=== PATIENT | female | born 1950 | race Caucasian/White ===

== ENCOUNTER 2017-03-17 05:56 | Day surgery (SDC) | payer MEDICARE, OTHER ==
[2017-03-17] MEDS ORDERED: DIPRIVAN 200 MG/20 ML IV ONE (05:57)
[2017-03-17] MEDS ORDERED: Zofran 4 MG/2 ML VIAL IV ONE (05:57)
[2017-03-17] MEDS ORDERED: Lactated Ringers 1,000 ML IV SCH (06:30)
[2017-03-17 08:44] VITALS: BP 124/91; PULSE 64; O2SAT 96
--- NOTE | 2017-03-17 10:52 | OP ---
SURGERY DATE: 03/17/17 SURGERY TIME: 0700 PREOPERATIVE DIAGNOSIS: 1. DIARRHEA. POSTOPERATIVE DIAGNOSIS: 1. DIVERTICULOSIS. PROCEDURE: 1. Colonoscopy. SURGEON: Dr. Jeff Roth. ANESTHESIA: MAC by Jose Arias CRNA. SPECIMENS: None. ESTIMATED BLOOD LOSS: None. DESCRIPTION OF PROCEDURE: After informed written consent was obtained, the patient was taken to the endoscopy suite. She underwent monitored anesthesia and a digital rectal exam showed normal sphincter tone and no internal lesions. The scope was inserted in the rectum and sequentially the entire colonic mucosa was traversed. The level of the cecum was reached and verified with direct visualization of the ileocecal valve. Upon withdrawal, careful mucosal inspection revealed no gross abnormalities other than scattered diverticula throughout most of the length of the colon. Prep was noted to be fair. Prior to withdrawal, retroflexion showed no internal lesions. The scope was removed and the patient was transferred to the recovery room in excellent condition.
== END 2017-03-17 08:50 | disposition home or self-care (01) ==
LOC: SDC 05:56
PROVIDERS: ATTEND Family Medicine
PROC: 0DJD8ZZ Inspection of Lower Intestinal Tract, Via Natural or Artificial Opening Endoscopic (ICD-10-PCS; principal; 2017-03-17)
DX: K57.90 Diverticulosis of intestine, part unspecified, without perforation or abscess without bleeding (principal)
CPT/HCPCS: 00810; J2405; J2704

== ENCOUNTER 2018-03-10 18:25 | Emergency (ER) | payer MEDICARE ==
[2018-03-10] MEDS ORDERED: Sodium Chloride 0.9% 1000 ML 1,000 ML ONE (18:41)
--- NOTE | 2018-03-10 18:43 | ERPHSYRPT ---
- History of Present Illness Source: patient Exam Limitations: no limitations Timing/Duration: today (30 minutes prior to arrival) Severity: moderate Modifying Factors: Improves With: nothing Associated Symptoms: other (Patient felt confused and was having problems answering questions), No nausea, No vomiting, No abdominal pain, No shortness of breath, No heartburn, No diaphoresis, No cough, No chills, No chest pain, No fever, No headaches, No loss of appetite, No malaise, No rash, No syncope, No seizure, No weakness <ZAY REED - Last Filed: 03/10/18 19:03> <HELEN PRETTY - Last Filed: 03/10/18 21:57> - History of Present Illness Time Seen by Provider: 03/10/18 18:37 Physician History: This is a 67-year-old white female who is brought by her with complaints that the patient "I was confused and thought I might have a stroke. According to patient about 30 minutes prior to arrival her had asked her to questions she was unable to answer she felt confused so they brought her in. She states she thought she was confused the she was worried that she might of had a stroke. She has not had any problems moving she has no pain. Past medical history includes dysrhythmia patient denies prior strokes denies heart attack she does see Dr. Naranjo Past surgical history includes all bladder hysterectomy She said she did social history patient denies tobacco alcohol or illicit drug use. (ZAY REED) Allergies/Adverse Reactions: topiramate [From [employer]] Adverse Reaction (Verified 03/10/18 18:38) Itching Home Medications: Amitriptyline HCl 25 mg [Elavil 25 mg] 25 mg PO DAILY 03/15/17 [History] Atenolol 25 mg PO DAILY 03/15/17 [History] Fluoxetine HCl 20 mg [Prozac 20 MG] 20 mg PO DAILY 03/15/17 [History] Gabapentin [Neurontin] 100 mg PO QID 03/15/17 [History] Pravastatin Sodium [Pravachol] 80 mg PO DAILY 03/15/17 [History] - Review of Systems Constitutional: No Fever, No Chills Eyes: No Symptoms Ears, Nose, & Throat: No Symptoms Respiratory: No Cough, No Dyspnea Cardiac: No Chest Pain, No Edema, No Syncope Abdominal/Gastrointestinal: No Abdominal Pain, No Nausea, No Vomiting, No Diarrhea Genitourinary Symptoms: No Dysuria Musculoskeletal: No Back Pain, No Neck Pain Skin: No Rash Neurological: Other (patient felt confused and was having problems answering questions), No Dizziness, No Focal Weakness, No Gait Changes, No Headache, No Irritability, No Lethargy, No Paralysis, No Parasthesia, No Seizure, No Sensory Changes, No Speech Changes, No Tics, No Tremors, No Vertigo Psychological: No Symptoms Endocrine: No Symptoms All Other Systems: Reviewed and Negative <ZAY REED - Last Filed: 03/10/18 19:03> - Past Medical History Pertinent Past Medical History: Yes Neurological History: Migraines ENT History: No Pertinent History Cardiac History: High Cholesterol, Other Respiratory History: No Pertinent History Endocrine Medical History: No Pertinent History Musculoskeletal History: No Pertinent History GI Medical History: Gallbladder Disease History: No Pertinent History Psycho-Social History: No Pertinent History Female Reproductive Disorders: No Pertinent History Other Medical History: heart murmur, valve leaking, - Past Surgical History Past Surgical History: Yes Neuro Surgical History: No Pertinent History Cardiac: No Pertinent History Respiratory: No Pertinent History Gastrointestinal: Cholecystectomy Genitourinary: No Pertinent History Musculoskeletal: No Pertinent History Female Surgical History: Hysterectomy, Section Other Surgical History: HEATH for leaky valve. - Social History Smoking Status: Never smoker Exposure to second hand smoke: No Drug Use: none <ZAY REED - Last Filed: 03/10/18 19:03> - Physical Exam General Appearance: no apparent distress, alert, other (Well-developed elderly appearing white female, alert oriented 3.) Eye Exam: other (eyes left pupil smaller than the right, both pupils reactive, extraocular muscles are intact, fundi are unremarkable) Ears, Nose, Throat Exam: normal ENT inspection, TMs normal, pharynx normal, moist mucous membranes Neck Exam: normal inspection, non-tender, supple, full range of motion Respiratory Exam: normal breath sounds, lungs clear, No respiratory distress Cardiovascular Exam: regular rate/rhythm, normal heart sounds, normal peripheral pulses Gastrointestinal/Abdomen Exam: soft, normal bowel sounds, No tenderness, No mass Back Exam: normal inspection, normal range of motion, No CVA tenderness, No vertebral tenderness Extremity Exam: normal inspection, normal range of motion, pelvis stable Neurologic Exam: alert, oriented x 3, cooperative, oil tank car cleaner II-XII nml as tested, normal mood/affect, nml cerebellar function, nml station & gait, sensation nml, other (eyes left pupil smaller than the right , both pupils reactive, cranial nerves otherwise intact, speech is normal, no facial droop, label coder equal and symmetrical 5/5, normal finger to nose, full range of motion to all extremities , GCS equals 15, sensation intact to all extremities, no pronator drift), No motor deficits Skin Exam: normal color, warm, dry, No rash Lymphatic Exam: No adenopathy SpO2 Interpretation: normal (99%) <ZAY REED - Last Filed: 03/10/18 19:03> - Nursing Vital Signs Nursing Vital Signs: Initial Vital Signs Temperature 98.0 F 03/10/18 18:30 Pulse Rate 67 03/10/18 18:30 Blood Pressure 142/99 03/10/18 18:30 O2 Sat by Pulse Oximetry 99 03/10/18 18:30 Pain Scale Pain Intensity 0 - Course Nursing assessment & vital signs reviewed: Yes <ZAY REED - Last Filed: 03/10/18 19:03> - CT Exams Head CT Interpretation: Discussed w/radiologist, No/Intracranial Hemorrhag <HELEN PRETTY - Last Filed: 03/10/18 21:57> Ordered Tests: Active Orders 24 hr Category Date Time Status Accucheck STAT Care 03/10/18 18:34 Active Solutions Manager STAT Care 03/10/18 18:34 Active EKG-ER Only STAT Care 03/10/18 18:34 Active IV Insertion STAT Care 03/10/18 18:34 Active Pulse Oximetry (ED) STAT Care 03/10/18 18:34 Active HEAD WITHOUT CONTRAST [CT] Stat Exams 03/10/18 18:35 Completed CBC W DIFF Stat Lab 03/10/18 18:50 Completed CMP Stat Lab 03/10/18 18:50 Completed PROTIME WITH INR Stat Lab 03/10/18 18:50 Completed PTT Stat Lab 03/10/18 18:50 Completed TROPONIN Q3H Lab 03/10/18 18:50 Completed TROPONIN Q3H Lab 03/10/18 21:51 Received TROPONIN Q3H Lab 03/11/18 00:45 Ordered TROPONIN Q3H Lab 03/11/18 03:45 Ordered TROPONIN Q3H Lab 03/11/18 06:45 Ordered UA W/RFX UR CULTURE Stat Lab 03/10/18 19:39 Completed Medication Summary Generic Name Dose Route Start Last Admin Trade Name Etienne PRN Reason Stop Dose Admin Sodium Chloride 1,000 mls @ 100 mls/hr 03/10/18 18:45 03/10/18 18:44 Sodium Chloride 0.9% 1000 Ml IV 04/09/18 18:44 100 mls/hr .Q10H TUNDE Administration Lab/Rad Data: Laboratory Result Diagrams 03/10/18 18:50 03/10/18 18:50 Laboratory Results 03/10/18 03/10/18 03/10/18 Range/Units 19:39 18:50 18:50 WBC (4.0-10.5) K/mm3 RBC (4.1-5.4) M/mm3 Hgb (12.0-16.0) gm/dl Hct (35-47) % MCV (78-100) fl MCH (26-32) pg MCHC (32-36) g/dl RDW (11.5-14.0) % Plt Count (150-450) K/mm3 MPV (6-9.5) fl Gran % (36.0-66.0) % Eos # (Auto) (0-0.5) Absolute Lymphs (auto) (1.0-4.6) Absolute Monos (auto) (0.0-1.3) Lymphocytes % (24.0-44.0) % Monocytes % (0.0-12.0) % Eosinophils % (0.00-5.0) % Basophils % (0.0-0.4) % Absolute Granulocytes (1.4-6.9) Basophils # (0-0.4) PT 11.2 (9.95-12.35) SECONDS INR 0.96 (0.8-3.0) APTT 27.5 (25.3-37.0) SECONDS Sodium (137-145) mmol/L Potassium (3.5-5.1) mmol/L Chloride (98-107) mmol/L Carbon Dioxide (22-30) mmol/L Anion Gap (5-15) MEQ/L BUN (7-17) mg/dL Creatinine (0.52-1.04) mg/dL Estimated GFR ML/MIN Glucose (74-106) mg/dL Calcium (8.4-10.2) mg/dL Total Bilirubin (0.2-1.3) mg/dL AST (14-36) U/L ALT (0-35) U/L Alkaline Phosphatase (38-126) U/L Troponin I < 0.012 (0.000-0.034) ng/mL Serum Total Protein (6.3-8.2) g/dL Albumin (3.5-5.0) g/dL Urine Color STRAW (YELLOW) Urine Appearance CLEAR (CLEAR) Urine pH 6.0 (5-6) Ur Specific [place] 1.008 (1.005-1.025) Urine Protein NEGATIVE (Negative) Urine Ketones NEGATIVE (NEGATIVE) Urine Blood SMALL (0-5) Steven/ul Urine Nitrite NEGATIVE (NEGATIVE) Urine Bilirubin NEGATIVE (NEGATIVE) Urine Urobilinogen NEGATIVE (0-1) mg/dL Ur Leukocyte Esterase NEGATIVE (NEGATIVE) Urine WBC (Auto) NONE (0-5) /HPF Urine RBC (Auto) NONE (0-2) /HPF U Epithel Cells (Auto) NONE (FEW) /HPF Urine Bacteria (Auto) NONE SEEN (NEGATIVE) /HPF Urine Mucus (Auto) SLIGHT (NEGATIVE) /HPF Urine Culture Reflexed NO (NO) Urine Glucose NEGATIVE (NEGATIVE) mg/dL 03/10/18 03/10/18 Range/Units 18:50 18:50 WBC 8.1 (4.0-10.5) K/mm3 RBC 4.94 (4.1-5.4) M/mm3 Hgb 13.4 (12.0-16.0) gm/dl Hct 41.8 (35-47) % MCV 84.6 (78-100) fl MCH 27.1 (26-32) pg MCHC 32.1 (32-36) g/dl RDW 13.3 (11.5-14.0) % Plt Count 211 (150-450) K/mm3 MPV 10.9 H (6-9.5) fl Gran % 46.4 (36.0-66.0) % Eos # (Auto) 0.26 (0-0.5) Absolute Lymphs (auto) 3.42 (1.0-4.6) Absolute Monos (auto) 0.67 (0.0-1.3) Lymphocytes % 42.0 (24.0-44.0) % Monocytes % 8.2 (0.0-12.0) % Eosinophils % 3.2 (0.00-5.0) % Basophils % 0.2 (0.0-0.4) % Absolute Granulocytes 3.77 (1.4-6.9) Basophils # 0.02 (0-0.4) PT (9.95-12.35) SECONDS INR (0.8-3.0) APTT (25.3-37.0) SECONDS Sodium 140 (137-145) mmol/L Potassium 4.1 (3.5-5.1) mmol/L Chloride 103 (98-107) mmol/L Carbon Dioxide 28 (22-30) mmol/L Anion Gap 13.5 (5-15) MEQ/L BUN 22 H (7-17) mg/dL Creatinine 0.95 (0.52-1.04) mg/dL Estimated GFR > 60.0 ML/MIN Glucose 120 H (74-106) mg/dL Calcium 9.6 (8.4-10.2) mg/dL Total Bilirubin 0.20 (0.2-1.3) mg/dL AST 24 (14-36) U/L ALT 23 (0-35) U/L Alkaline Phosphatase 86 (38-126) U/L Troponin I (0.000-0.034) ng/mL Serum Total Protein 7.1 (6.3-8.2) g/dL Albumin 4.4 (3.5-5.0) g/dL Urine Color (YELLOW) Urine Appearance (CLEAR) Urine pH (5-6) Ur Specific [place] (1.005-1.025) Urine Protein (Negative) Urine Ketones (NEGATIVE) Urine Blood (0-5) Steven/ul Urine Nitrite (NEGATIVE) Urine Bilirubin (NEGATIVE) Urine Urobilinogen (0-1) mg/dL Ur Leukocyte Esterase (NEGATIVE) Urine WBC (Auto) (0-5) /HPF Urine RBC (Auto) (0-2) /HPF U Epithel Cells (Auto) (FEW) /HPF Urine Bacteria (Auto) (NEGATIVE) /HPF Urine Mucus (Auto) (NEGATIVE) /HPF Urine Culture Reflexed (NO) Urine Glucose (NEGATIVE) mg/dL - Progress Progress: improved <ZAY REED - Last Filed: 03/10/18 19:03> - Progress Discussed with Dr.: Other (DISCUSSED WITH DR ASTUDILLO OF [facility] ACCEPTS TRANSFER FOR HOSPITALIZATION AT 2100 [facility]) <HELEN PRETTY - Last Filed: 03/10/18 21:57> - Progress Progress Note: 03/10/18 18:44 This is a 67-year-old white female brought by her with complaint that she was worried she was having a stroke according to the patient she had an episode which began 30 minutes prior to arrival where she was unable to answer questions. On my arrival into the patient's room patient is alert she is answering questions well she is oriented 3. She has no facial droop speech is clear and normal. Patient does have a left pupil smaller than the right however pupils are reactive funduscopic examination is unremarkable. Patient's label coder are equal and symmetrical 5 over 5 there is no pronator drift patient is able to perform finger to nose bilaterally. Patient has full range of motion to all extremities. Other than the smaller pupil on the left patient's cranial nerves II through XII are intact. Sensation intact to all extremities. CT of the head has been ordered Accu-Chek CBC CMP troponin EKG all are pending. 03/10/18 19:02 Case is discussed with Dr. Pretty. Dr. Pretty will assume care of this patient secondary to shift change (ZAY REED) 03/10/18 20:38, TELENEUROLOGY PER DR CALLEJAS STATES HEAD CT SCAN CONSISTENT WITH A LEFT FRONTAL HYPODENSITY, SUBACUTE EVOLVING INFARCT AND IS NOT A CANDIDATE FOR [facility], [facility] HOSPITALIZATION WITH NEUROLOGY CONSULTION 03/10/18 21:32 (HELEN PRETTY) <ZAY REED - Last Filed: 03/10/18 19:03> - Departure Time of Disposition: 22:00 Departure Disposition: Transfer Critical Care Time: No <HELEN PRETTY - Last Filed: 03/10/18 21:57> - Departure Clinical Impression: ACUTE CVA Condition: Stable Referrals: GM PEREZ [Primary Care Provider] -
[2018-03-10] MEDS ORDERED: Sodium Chloride 0.9% 1000 ML 1,000 ML IV SCH (18:45)
[2018-03-10 18:58] LABS: BASOPHIL % 0.2 % (0.0-0.4); Basophil (Absolute #) 0.02 (0-0.4); Eosinophil % 3.2 % (0.00-5.0); Eosinophil (Absolute #) 0.26 (0-0.5); Granulocyte Absolute (ANC) 3.77 (1.4-6.9); Granulocytes % 46.4 % (36.0-66.0); Hematocrit 41.8 % (35-47); Hemoglobin 13.4 gm/dl (12.0-16.0); Lymphocyte (Absolute #) 3.42 (1.0-4.6); Mean Cell Volume 84.6 fl (78-100); Mean Corpuscular Hemoglobin 27.1 pg (26-32); Mean Corpuscular Hgb Concent. 32.1 g/dl (32-36); Mean Platelet Volume 10.9 fl (6-9.5); Monocyte (Absolute #) 0.67 (0.0-1.3); Monocytes % 8.2 % (0.0-12.0); Platelet Count 211 K/mm3 (150-450); Red Blood Count 4.94 M/mm3 (4.1-5.4); Red Cell Distribution Width 13.3 % (11.5-14.0); White Blood Count 8.1 K/mm3 (4.0-10.5)
[2018-03-10 19:15] LABS: ALBUMIN 4.4 g/dL (3.5-5.0); ALKALINE PHOSPHATASE 86 U/L (38-126); ANION GAP 13.5 MEQ/L (5-15); BLOOD UREA NITROGEN 22 mg/dL (7-17); CHLORIDE 103 mmol/L (98-107); Calcium 9.6 mg/dL (8.4-10.2); Carbon Dioxide 28 mmol/L (22-30); Creatinine 1 0.95 mg/dL (0.52-1.04); Glucose 120 mg/dL (74-106); Potassium 4.1 mmol/L (3.5-5.1); SGOT/AST 24 U/L (14-36); SGPT/ALT 23 U/L (0-35); SODIUM 140 mmol/L (137-145); Total Protein 7.1 g/dL (6.3-8.2)
[2018-03-10 19:16] LABS: INR 0.96 (0.8-3.0)
[2018-03-10 19:19] LABS: PTT 27.5 SECONDS (25.3-37.0)
--- NOTE | 2018-03-10 19:22 | XRAY ---
Indication: Mental status change. Multiple contiguous axial images obtained through the head without contrast. Comparison: July 14, 2016. Stable age-appropriate global atrophy and minimal periventricular degenerative micro-ischemia. No acute intracranial hemorrhage, abnormal extra-axial fluid collection, or mass effect. Fourth ventricle is midline without hydrocephalus. Mattson-white matter differentiation preserved. Bony calvarium intact with stable small right frontal cortical bony exostosis. Visualized paranasal sinuses and mastoid air cells are clear. Impression: Stable nonacute senile brain. Comment: Preliminary interpretation was made by [facility]. No discrepancy. CTDI 67.22
[2018-03-10 19:45] LABS: Appearance CLEAR (CLEAR); Bilirubin NEGATIVE (NEGATIVE); Blood SMALL Ery/ul (0-5); Glucose NEGATIVE (NEGATIVE); Ketones NEGATIVE (NEGATIVE); Leukocyte Esterase NEGATIVE (NEGATIVE); Nitrite NEGATIVE (NEGATIVE); Protein,Urine Dip NEGATIVE (Negative); Specific Gravity 1.008 (1.005-1.025); Urobilinogen NEGATIVE mg/dL (0-1)
[2018-03-10 22:01] VITALS: BP 123/72; PULSE 60; O2SAT 95
== END 2018-03-10 22:05 | disposition short-term general hospital (02) ==
LOC: ED 18:25
DX: I63.9 Cerebral infarction, unspecified (principal); Z79.899 Other long term (current) drug therapy
CPT/HCPCS: 36000; 36415; 70450; 80053; 81001; 82962; 84484; 85025; 85610; 85730; 93005; 93041; 96360; 96361; 99285